=== PATIENT | male | born 2000 | race Caucasian/White ===

== ENCOUNTER 2022-12-22 04:46 | Emergency (ER) | payer SELFPAY ==
[~2022-12-22] VITALS: Ht 177.8 cm; Wt 68.0 kg
[2022-12-22] MEDS ORDERED: AMOXICILLIN 500 MG (POLYMOX) CAP PO STA (05:08)
[2022-12-22] MEDS ORDERED: KETOROLAC 30 MG/ML VIAL IM ONE (05:15)
[2022-12-22] MEDS ORDERED: LIDOCAINE 2% VISCOUS 15 ML UDC PO ONE (05:15)
--- NOTE | 2022-12-22 05:23 | ED General ---
General Chief Complaint: Dental Problems/Pain Stated Complaint: LEFT SIDE OF FACE PAIN,DENTAL PAIN Nursing Triage Note: PT AMB TO RM 6 W C/O LEFT UPPER DENTAL PAIN X2 WKS, A&OX4. Source of Information: Patient Exam Limitations: No Limitations History of Present Illness Date Seen by Provider: Dec 22, 2022 Time Seen by Provider: 04:54 Initial Comments This 21-year-old young man presents to the emergency room with 2 weeks of left- sided facial and dental pain. He has had no fevers. He has not been to a dentist. He has been taking Tylenol only because he is under the impression that he cannot take ibuprofen. Apparently he was told that he became disoriented with ibuprofen when he was a child. He has a large deep dental carry and a left upper molar. Incidentally he has hypertension noted as well. Allergies and Home Medications Allergies Coded Allergies: ibuprofen (Verified Adverse Reaction, Unknown, confusion, 12/22/22) Patient Home Medication List Home Medication List Reviewed: Yes Amoxicillin (Amoxicillin) 500 Mg Capsule, 1,000 MG PO BID Prescribed by: VANITA LANDA on 12/22/22 0530 Review of Systems Review of Systems Constitutional: no symptoms reported EENTM: see HPI Respiratory: no symptoms reported Cardiovascular: see HPI Gastrointestinal: no symptoms reported Genitourinary: no symptoms reported Musculoskeletal: no symptoms reported Skin: no symptoms reported Psychiatric/Neurological: No Symptoms Reported Hematologic/Lymphatic: No Symptoms Reported Immunological/Allergic: no symptoms reported Past Qpnjapm-Zudrzk-Usgyvi Hx Patient Social History Tobacco Use?: Yes Tobacco type used: Cigarettes Smoking Status: Current Everyday Smoker Use of E-Cig and/or Vaping dev: No Substance use?: No Alcohol Use?: No Immunizations Up To Date Influenza Vaccine Up-to-Date: No; Not Current Past Medical History Surgeries: No Respiratory: No Currently Using CPAP: No Cardiac: No Neurological: No Reproductive Disorders: No Gastrointestinal: No Musculoskeletal: No Endocrine: No HEENT: No Cancer: No Psychosocial: No Integumentary: No Physical Exam Vital Signs Vital Signs - First Documented 12/22/22 04:52 Temp 36.9 Pulse 77 Resp 18 B/P (MAP) 161/114 (130) Pulse Ox 98 O2 Delivery Room Air Capillary Refill : Less Than 3 Seconds Height, Weight, BMI Height: '" Weight: lbs. oz. kg; 21.00 BMI Method: General Appearance: No Apparent Distress, WD/WN, Thin HEENT: PERRL/EOMI, Pharynx Normal, Other (Large deep dental carry and a left upper molar with minimal gingival inflammation and no overt abscess. 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 Skin: Normal Color, Warm/Dry Progress/Results/Core Measures Suspected Sepsis SIRS Temperature: Pulse: 77 Respiratory Rate: 18 Blood Pressure 161 /114 Mean: 130 Results/Orders My Orders Orders - VANITA ROLLINS MD Lidocaine 2% Viscous 15 Ml (Xylocaine Vi (12/22/22 05:15) Ketorolac Injection (Toradol Injection) (12/22/22 05:15) Amoxicillin Capsule (Polymox Capsule) (12/22/22 05:08) Medications Given in ED Current Medications Medications Dose Ordered Sig/Lloyd Route Start Time Stop Time Status Last Admin Dose Admin Ketorolac Tromethamine 30 mg ONCE ONCE IM 12/22/22 05:15 12/22/22 05:16 DC 12/22/22 05:14 30 MG Lidocaine HCl 5 ml ONCE ONCE PO 12/22/22 05:15 12/22/22 05:16 DC 12/22/22 05:14 5 ML Vital Signs/I&O 12/22/22 04:52 Temp 36.9 Pulse 77 Resp 18 B/P (MAP) 161/114 (130) Pulse Ox 98 O2 Delivery Room Air Capillary Refill : Less Than 3 Seconds Blood Pressure Mean: 130 Progress Note : Progress Note Patient was treated with a Toradol injection. First dose of amoxicillin was administered. Anesthetic gauze pads were prepared and dispensed. Discharge instructions were reviewed with him. See discharge instructions for further discussion. Departure Impression Primary Impression: Pain, dental Additional Impressions: Dental decay Cerumen impaction Qualified Codes: H61.23 - Impacted cerumen, bilateral High blood pressure Qualified Codes: I10 - Essential (primary) hypertension Disposition: 01 HOME, SELF-CARE Condition: Improved Departure-Patient Inst. Decision time for Depature: 05:24 Referrals: NO,LOCAL PHYSICIAN (PCP/Family) Primary Care Physician Patient Instructions: Ear Wax Impaction ED, Tooth Decay ED Add. Discharge Instructions: Follow-up with a dentist as soon as possible. You will likely need an extraction or significant dental work performed to alleviate your symptoms. These procedures cannot be done in the emergency room or any doctors office. They must be arranged with a dentist. Complete antibiotics as prescribed because your pain may be due to deeper abscess where you have tooth decay. [place] your teeth gently twice daily with a soft bristle toothbrush. For your pain you should take Tylenol (acetaminophen) up to 1000 mg every 6 hours as needed. You may additionally take ibuprofen up to 600 mg every 6 hours as needed. You may use the anesthetic gauze pads tucked into the area of best e ffect. Please eat and drink very carefully after using these gauze pads as they will numb your mouth, tongue, and throat. Do not fall asleep with gauze pads in your mouth. You have earwax impaction in both ears which is obstructing your eardrums and is likely affecting your hearing. Do not use Q-tips in your ears as they tend to pack the wax deeper. Instead, use [id number] earwax removal drops. We will likely need to perform several treatments before the wax loosens and comes out. Your blood pressure is elevated today. You need to have your blood pressure checked again and preferably have an appointment soon at the clinic to evaluate your blood pressure. You should check your blood pressure when your pain is under better control. Work toward quitting smoking as fast as possible. Smoking affects your dental health, blood pressure, and overall health dramatically. Return to care if you have worsening symptoms despite following these instructions. All discharge instructions reviewed with patient and/or family. Voiced understanding. Scripts Amoxicillin (Amoxicillin) 500 Mg Capsule 1000 MG PO BID, #40 CAP 0 Refills Prov: VANITA ROLLINS MD 12/22/22 VANITA ROLLINS MD Dec 22, 2022 05:23
[2022-12-22] MEDS ORDERED: AMOX500C2 PO (05:30)
[2022-12-22 05:35] VITALS: BP 142/98
== END 2022-12-22 05:35 | disposition home or self-care (01) ==
LOC: ER 04:50
DX: K02.9 Dental caries, unspecified (principal); H61.23 Impacted cerumen, bilateral; R03.0 Elevated blood-pressure reading, without diagnosis of hypertension; F17.210 Nicotine dependence, cigarettes, uncomplicated; Z88.6 Allergy status to analgesic agent; Z28.310 Unvaccinated for COVID-19
CPT/HCPCS: 99284

== ENCOUNTER 2023-08-15 12:13 | Emergency (ER) | payer SELFPAY ==
[~2023-08-15 12:13] MED LIST: AMOX500C2 PO
[2023-08-15] MEDS ORDERED: NS IV 1000 ML 1,000 ML IV STA (12:37)
--- NOTE | 2023-08-15 12:45 | ED Chest Pain ---
General Chief Complaint: Cardiac/General Problems Stated Complaint: HEART RACING/ 980 MG CAFFEINE Nursing Triage Note: PT AMB TO RM 8 WITH C/O HEART RACING AFTER DRINKING 3 ENERGY DRINKS AND A CAFFIENE COOKIE AT WORK TODAY. PT ALSO STATES HE DID NOT SLEEP LAST NIGHT Source: patient Exam Limitations: no limitations History of Present Illness Date Seen by Provider: Aug 15, 2023 Time Seen by Provider: 12:42 Initial Comments Patient is a 22-year-old male who presents ED for high caffeine intake. Patient states 1 hour ago he drank a C4 energy drink. Around 9 AM he drank 2 black rifle coffees. Did also eat a caffeine cookie at that time. Patient was going to work at [employer]. Started having chest pressure shortness of breath and 'funny feeling" in his head over the past hour. States he does drink caffeine daily but not at that high of amount in a short period of time. Patient reports drinking just a little under 1000 mg of caffeine within a 3 to 4-hour period. Denies of any alcohol use or drug use. Patient denies of any history of heart disease. Denies visual changes, unilateral muscle weakness or sensory changes, vomit, diarrhea, abdominal pain. No known cardiac history Allergies and Home Medications Allergies Coded Allergies: ibuprofen (Verified Adverse Reaction, Unknown, confusion, 12/22/22) Patient Home Medication List Home Medication List Reviewed: Yes Amoxicillin (Amoxicillin) 500 Mg Capsule, 1,000 MG PO BID Prescribed by: VANITA LANDA on 12/22/22 0530 Review of Systems Review of Systems Constitutional: No chills, No diaphoresis EENTM: No Eye Pain Respiratory: Denies Cough, Denies Orthopnea Cardiovascular: Chest Pain Gastrointestinal: Denies Abdominal Pain, Denies Diarrhea, Denies Nausea, Denies Vomiting Genitourinary: Denies Burning, Denies Discharge, Denies Drainage, Denies Frequency Musculoskeletal: No back pain, No joint pain Skin: No change in color, No change in hair/nails Psychiatric/Neurological: Denies Anxiety, Denies Depressed All Other Systems Reviewed Negative Unless Noted: Yes Past Nxzkdtt-Ycsttt-Yvadlr Hx Patient Social History Tobacco Use?: Yes Tobacco type used: Cigarettes Substance use?: No Alcohol Use?: No Pt feels they are or have been: No Past Medical History Surgery/Hospitalization HX: DENIES Surgeries: No Respiratory: No Currently Using CPAP: No Cardiac: No Neurological: No Reproductive Disorders: No Gastrointestinal: No Musculoskeletal: No Endocrine: No HEENT: No Cancer: No Psychosocial: No Integumentary: No Physical Exam Vital Signs Vital Signs - First Documented 08/15/23 12:27 Pulse 92 Resp 20 B/P (MAP) 140/99 (113) Pulse Ox 99 O2 Delivery Room Air Capillary Refill : Height, Weight, BMI Height: '" Weight: lbs. oz. kg; 21.00 BMI Method: General Appearance: No Apparent Distress, WD/WN HEENT: PERRL/EOMI, TMs Normal, Normal ENT Inspection, Pharynx Normal Neck: Full Range of Motion, Normal Inspection, Non Tender, Supple Respiratory: Chest Non Tender, Lungs Clear, Normal Breath Sounds, No Accessory Muscle Use Cardiovascular: Regular Rate, Rhythm, No Edema, No Gallop, No JVD Gastrointestinal: Normal Bowel Sounds, No Organomegaly, No Pulsatile Mass, Non Tender Extremity: Normal Capillary Refill, Normal Inspection, Normal Range of Motion, Non Tender Neurologic/Psychiatric: Oriented x3, No Motor/Sensory Deficits, Normal Mood/Affect, 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 Skin: Normal Color, Warm/Dry Progress/Results/Core Measures Results/Orders Lab Results Laboratory Tests Test 08/15/23 12:50 08/15/23 12:53 Range/Units White Blood Count 5.8 4.3-11.0 10^3/uL Red Blood Count 5.29 4.30-5.52 10^6/uL Hemoglobin 15.8 13.3-17.7 g/dL Hematocrit 47 40-54 % Mean Corpuscular Volume 89 80-99 fL Mean Corpuscular Hemoglobin 30 25-34 pg Mean Corpuscular Hemoglobin Concent 34 32-36 g/dL Red Cell Distribution Width 12.6 10.0-14.5 % Platelet Count 222 130-400 10^3/uL Mean Platelet Volume 10.2 9.0-12.2 fL Immature Granulocyte % (Auto) 0 % Neutrophils (%) (Auto) 39 L 42-75 % Lymphocytes (%) (Auto) 50 H 12-44 % Monocytes (%) (Auto) 9 0-12 % Eosinophils (%) (Auto) 2 0-10 % Basophils (%) (Auto) 0 0-10 % Neutrophils # (Auto) 2.3 1.8-7.8 10^3/uL Lymphocytes # (Auto) 2.9 1.0-4.0 10^3/uL Monocytes # (Auto) 0.5 0.0-1.0 10^3/uL Eosinophils # (Auto) 0.1 0.0-0.3 10^3/uL Basophils # (Auto) 0.0 0.0-0.1 10^3/uL Immature Granulocyte # (Auto) 0.0 0.0-0.1 10^3/uL Prothrombin Time 11.7 L 12.2-14.7 SEC INR Comment 0.8 0.8-1.4 Activated Partial Thromboplast Time 29 24-35 SEC Sodium Level 141 135-145 MMOL/L Potassium Level 4.3 3.6-5.0 MMOL/L Chloride Level 105 98-107 MMOL/L Carbon Dioxide Level 25 21-32 MMOL/L Anion Gap 11 5-14 MMOL/L Blood Urea Nitrogen 13 7-18 MG/DL Creatinine 1.11 0.60-1.30 MG/DL Estimat Glomerular Filtration Rate 95 BUN/Creatinine Ratio 12 Glucose Level 100 70-105 MG/DL Calcium Level 9.6 8.5-10.1 MG/DL Corrected Calcium 8.5-10.1 MG/DL Magnesium Level 2.3 1.6-2.4 MG/DL Total Bilirubin 0.2 0.1-1.0 MG/DL Aspartate Amino Transf (AST/SGOT) 16 5-34 U/L Alanine Aminotransferase (ALT/SGPT) 12 0-55 U/L Alkaline Phosphatase 54 40-136 U/L Myoglobin 18.9 10.0-92.0 NG/ML Troponin I < 0.028 <0.028 NG/ML Total Protein 7.9 6.4-8.2 GM/DL Albumin 4.8 H 3.2-4.5 GM/DL Lipase 38 8-78 U/L Urine Opiates Screen NEGATIVE NEGATIVE Urine Oxycodone Screen NEGATIVE NEGATIVE Urine Methadone Screen NEGATIVE NEGATIVE Urine Propoxyphene Screen NEGATIVE NEGATIVE Urine Barbiturates Screen NEGATIVE NEGATIVE Ur Tricyclic Antidepressants Screen NEGATIVE NEGATIVE Urine Phencyclidine Screen NEGATIVE NEGATIVE Urine Amphetamines Screen NEGATIVE NEGATIVE Urine Methamphetamines Screen NEGATIVE NEGATIVE Urine Benzodiazepines Screen NEGATIVE NEGATIVE Urine Cocaine Screen NEGATIVE NEGATIVE Urine Cannabinoids Screen NEGATIVE NEGATIVE My Orders Orders - SCHULTZ,MP A PA Ns Iv 1000 Ml (Ns Iv 1000 Ml) (08/15/23 12:37) Cbc With Automated Diff (08/15/23 12:37) Magnesium (08/15/23 12:37) Chest 1 View, Ap/Pa Only (08/15/23 12:37) Comprehensive Metabolic Panel (08/15/23 12:37) Myoglobin Serum (08/15/23 12:37) Protime With Inr (08/15/23 12:37) Partial Thromboplastin Time (08/15/23 12:37) O2 (08/15/23 12:37) Monitor-Rhythm Ecg Trace Only (08/15/23 12:37) Ed Iv/Invasive Line Start (08/15/23 12:37) Lipase (08/15/23 12:37) Troponin I Rae (08/15/23 12:37) Drug Screen Stat (Urine) (08/15/23 12:37) Vital Signs/I&O 08/15/23 08/15/23 12:27 14:25 Pulse 92 88 Resp 20 20 B/P (MAP) 140/99 (113) 150/91 Pulse Ox 99 99 O2 Delivery Room Air Room Air Blood Pressure Mean: 113 Departure Communication (PCP) Patient presents the ED for caffeine abuse. Patient drink a C4 energy drink, two black rifle coffee cups, and a caffeine cookie within a 3-hour period. Start around 9 AM. Consume near 1000 mg of caffeine. Started having chest tightness short of breath, lightheadedness, funny sensation in his head. Patient reports heart palpitations. Denies of any drug use or alcohol use. No known cardiac history. Vital signs were stable on arrival. Cardiac work-up was initiated. He was not tachycardic or hypoxic. Stable blood pressure. Reports feeling slightly anxious. There is no evidence of tremoring. He was not diaphoretic. Contacted poison control. Patient caffeine level is low and is not considered toxic. Toxic level would be 50 mg per kg. At this time recommended IV hydration. May take 4 to 6 hours for symptoms to completely resolve. Patient was started on liter of fluid. CBC, CMP troponin, EKG and chest x-ray was ordered. Cardiac work-up unremarkable. EKG normal sinus rhythm without evidence of arrhythmia. Drug screen unremarkable. CBC, CMP grossly unremarkable. Patient was observed for 2 hours during his stay. Symptoms continued to improve. Patient states he is feeling much better. Symptoms have resolved. He is requesting be discharged. Continue monitoring symptoms at home. Continue with hydration. No caffeine for the next 24 hours. Recommend decreasing caffeine no more than 400 mg/day. Return precaution were discussed with patient. Return precaution were discussed. Stable vital signs. Impression Primary Impression: Caffeine abuse Disposition: 01 HOME, SELF-CARE Condition: Stable Departure-Patient Inst. Decision time for Depature: 14:19 Referrals: [facility] [place] BRISEIDA,LOCAL PHYSICIAN (PCP) Primary Care Physician Patient Instructions: Caffeine Add. Discharge Instructions: Recommend staying hydrated. Do not drink any more caffeine today. Limit under 400 mg daily. Any change in symptoms such as chest pain or shortness of breath return back to ED. All discharge instructions reviewed with patient and/or family. Voiced understanding. MP SCHULTZ Aug 15, 2023 12:45
[2023-08-15 13:02] LABS: BASOPHILS % (AUTO) 0 % (0-10); EOSINOPHILS # (AUTO) 0.1 10^3/uL (0.0-0.3); EOSINOPHILS % (AUTO) 2 % (0-10); HEMATOCRIT 47 % (40-54); HEMOGLOBIN 15.8 g/dL (13.3-17.7); LYMPHOCYTES # (AUTO) 2.9 10^3/uL (1.0-4.0); LYMPHOCYTES % (AUTO) 50 % (12-44); MEAN CORPUSCULAR HEMOGLOBIN 30 pg (25-34); MEAN CORPUSCULAR HGB CONC 34 g/dL (32-36); MEAN CORPUSCULAR VOLUME 89 fL (80-99); MEAN PLATELET VOLUME 10.2 fL (9.0-12.2); MONOCYTES # (AUTO) 0.5 10^3/uL (0.0-1.0); MONOCYTES % (AUTO) 9 % (0-12); NEUTROPHILS # (AUTO) 2.3 10^3/uL (1.8-7.8); NEUTROPHILS % (AUTO) 39 % (42-75); PLATELET COUNT 222 10^3/uL (130-400); WHITE BLOOD COUNT 5.8 10^3/uL (4.3-11.0)
--- NOTE | 2023-08-15 13:05 | Diagnostic Imaging Report ---
HISTORY: Chest pain. TECHNIQUE: Frontal view of the chest. COMPARISON: None. FINDINGS: Lung volumes are large. No consolidation is seen. There is no pleural effusion or pneumothorax. The cardiac silhouette is normal in size. IMPRESSION: No acute pulmonary abnormality. Dictated by: Dictated on workstation # [id number]
[2023-08-15 13:14] LABS: ALBUMIN 4.8 GM/DL (3.2-4.5); CHLORIDE 105 MMOL/L (98-107); POTASSIUM 4.3 MMOL/L (3.6-5.0); SODIUM 141 MMOL/L (135-145)
[2023-08-15 13:16] LABS: CALCIUM 9.6 MG/DL (8.5-10.1)
[2023-08-15 13:17] LABS: AMPHETAMINE SCREEN, URINE NEGATIVE (NEGATIVE); BARBITURATE SCREEN URINE NEGATIVE (NEGATIVE); BENZODIAZEPINES SCREEN URINE NEGATIVE (NEGATIVE); CANNABINOID SCREEN, URINE NEGATIVE (NEGATIVE); COCAINE SCREEN URINE NEGATIVE (NEGATIVE); METHADONE STAT NEGATIVE (NEGATIVE); OPIATE SCREEN URINE NEGATIVE (NEGATIVE); OXYCODONE STAT NEGATIVE (NEGATIVE); PROPOXYPHENE STAT NEGATIVE (NEGATIVE); TRICYCLIC ANTIDEPRESSANTS SCRE NEGATIVE (NEGATIVE)
[2023-08-15 13:17] LABS: GLUCOSE 100 MG/DL (70-105); TOTAL PROTEIN 7.9 GM/DL (6.4-8.2)
[2023-08-15 13:18] LABS: CARBON DIOXIDE 25 MMOL/L (21-32)
[2023-08-15 13:19] LABS: BILIRUBIN,TOTAL 0.2 MG/DL (0.1-1.0)
[2023-08-15 13:20] LABS: ALKALINE PHOSPHATASE 54 U/L (40-136); CREATININE SERUM 1.11 MG/DL (0.60-1.30); GFR ESTIMATED 95
[2023-08-15 13:21] LABS: BUN/CREATININE RATIO 12
[2023-08-15 13:23] LABS: ALANINE AMINOTRANSFERASE 12 U/L (0-55); MAGNESIUM 2.3 MG/DL (1.6-2.4)
[2023-08-15 13:24] LABS: LIPASE 38 U/L (8-78)
[2023-08-15 13:51] LABS: INR 0.8 (0.8-1.4); PROTHROMBIN TIME PATIENT 11.7 SEC (12.2-14.7)
[2023-08-15 14:25] VITALS: BP 150/91
== END 2023-08-15 14:25 | disposition home or self-care (01) ==
LOC: EDUNIT# 12:13 → ER 12:16
DX: F15.10 Other stimulant abuse, uncomplicated (principal); F17.210 Nicotine dependence, cigarettes, uncomplicated
CPT/HCPCS: 36415; 71045; 80053; 80306; 83690; 83735; 83874; 84484; 85025; 85610; 85730; 93005

== ENCOUNTER 2023-08-27 07:57 | Observation (INO) | payer SELFPAY ==
[~2023-08-27] VITALS: Ht 180.3 cm; Wt 65.9 kg
[2023-08-27] MEDS ORDERED: fentaNYL INJECTION 100 MCG/2 ML VIAL IVP STA (08:19)
[2023-08-27] MEDS ORDERED: NS IV 1000 ML 1,000 ML IV STA (08:19)
[2023-08-27] MEDS ORDERED: KETOROLAC INJ 30 MG/ML VIAL IVP STA (08:19)
--- NOTE | 2023-08-27 08:27 | ED General ---
General Chief Complaint: Skin/Wound Problems Stated Complaint: BILAT HAND PAIN Nursing Triage Note: PT AMB TO RM 3 PT CO OF REDDEND AND PAINFUL RASH, AREA ON TOP OF HANDS CRACKED AND OOZING. RASH TO TORSO, NECK AND FEET. DENIES RASH ON GENTIAL AREA. STARTED 3-4 DAYS AGO. Source of Information: Patient Exam Limitations: No Limitations History of Present Illness Date Seen by Provider: Aug 27, 2023 Time Seen by Provider: 08:05 Initial Comments Here with report of painful inflammation to the back of his hands both hands and forearms that he thought may be related to an oil burn. Also has rash to his hands, axilla, arms, chest and lower legs and feet. He is not sure what that is related to. He was using lotions on his hands. 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 States the area on the hands and arms is worsening and quite painful. Denies nausea, vomiting, upper respiratory symptoms, cough or breathing problems. Timing/Duration: 3-4 Days Severity: Moderate Associated Systoms: No Fever/Chills, No Nausea/Vomiting; Rash; No Shortness of Air, No Weakness Allergies and Home Medications Allergies Coded Allergies: No Known Drug Allergies (Unverified , 08/27/23) Patient Home Medication List Home Medication List Reviewed: Yes No Active Prescriptions or Reported Meds Review of Systems Review of Systems Constitutional: see HPI; No chills, No fever EENTM: No nose congestion, No throat pain Respiratory: No cough, No short of breath Cardiovascular: no symptoms reported Gastrointestinal: No nausea, No vomiting Genitourinary: no symptoms reported Skin: change in color, lesions, rash, other (Swelling, redness and drainage to the back of both hands) Psychiatric/Neurological: No Symptoms Reported Past Aewjkrf-Kjtzxc-Zozrww Hx Patient Social History Tobacco Use?: Yes Tobacco type used: Cigarettes Substance use?: No Additional substance use comme: PT STATES HAS BEEN CLEAN FOR 14 MONTHS Alcohol Use?: No Pt feels they are or have been: No Past Medical History Surgery/Hospitalization HX: SEIZURES Surgeries: No Respiratory: No Currently Using CPAP: No Cardiac: No Neurological: No Reproductive Disorders: No Gastrointestinal: No Musculoskeletal: No Endocrine: No HEENT: No Cancer: No Psychosocial: No Integumentary: No Family Medical History Reviewed Nursing Family Hx Physical Exam-Suspected Sepsis Physical Exam Vital Signs Vital Signs - First Documented 08/27/23 08/27/23 08:11 10:45 Temp 36.5 Pulse 62 Resp 18 B/P (MAP) 119/91 (100) Pulse Ox 99 O2 Delivery Room Air Capillary Refill : Blood Pressure Mean: 100 Height, Weight, BMI Height: '" Weight: lbs. oz. kg; 20.00 BMI Method: General Appearance: WD/WN, Mild Distress (Pain to both hands) HEENT: PERRL/EOMI, Pharynx Normal Neck: Non Tender, Supple Respiratory: Lungs Clear, Normal Breath Sounds Cardiovascular: Regular Rate, Rhythm, No Murmur Gastrointestinal: Non Tender, Soft Back: Normal Inspection, No CVA Tenderness, No Vertebral Tenderness Extremity: Swelling (Bilateral hands and distal arms), Other (Skin findings as below) Neurologic/Psychiatric: Alert Skin: warm/dry, rash, other (Disseminated rash noted to the webspaces of the hands and feet bilateral that extend to antecubital spaces, torso and neck. Has swelling and very tender area of skin that has some purulence and drainage with redness and swelling to the back of both hands concerning for cellulitis) Focused Exam Lactate Level 08/27/23 08:21: Lactic Acid Level 0.88 Lactic Acid Level Progress/Results/Core Measures Suspected Sepsis SIRS Temperature: Pulse: 62 Respiratory Rate: 18 Laboratory Tests 08/27/23 08:21: White Blood Count 9.5 Blood Pressure 119 /91 Mean: 100 08/27/23 08:21: Lactic Acid Level 0.88 Laboratory Tests 08/27/23 08:21: Creatinine 0.88, Platelet Count 274, Total Bilirubin 0.5 Results/Orders Lab Results Laboratory Tests Test 08/27/23 08:21 Range/Units White Blood Count 9.5 4.3-11.0 10^3/uL Red Blood Count 5.21 4.30-5.52 10^6/uL Hemoglobin 15.5 13.3-17.7 g/dL Hematocrit 45 40-54 % Mean Corpuscular Volume 87 80-99 fL Mean Corpuscular Hemoglobin 30 25-34 pg Mean Corpuscular Hemoglobin Concent 34 32-36 g/dL Red Cell Distribution Width 12.6 10.0-14.5 % Platelet Count 274 130-400 10^3/uL Mean Platelet Volume 10.3 9.0-12.2 fL Immature Granulocyte % (Auto) 0 % Neutrophils (%) (Auto) 57 42-75 % Lymphocytes (%) (Auto) 31 12-44 % Monocytes (%) (Auto) 9 0-12 % Eosinophils (%) (Auto) 2 0-10 % Basophils (%) (Auto) 1 0-10 % Neutrophils # (Auto) 5.4 1.8-7.8 10^3/uL Lymphocytes # (Auto) 3.0 1.0-4.0 10^3/uL Monocytes # (Auto) 0.8 0.0-1.0 10^3/uL Eosinophils # (Auto) 0.2 0.0-0.3 10^3/uL Basophils # (Auto) 0.1 0.0-0.1 10^3/uL Immature Granulocyte # (Auto) 0.0 0.0-0.1 10^3/uL Sodium Level 140 135-145 MMOL/L Potassium Level 3.8 3.6-5.0 MMOL/L Chloride Level 109 H 98-107 MMOL/L Carbon Dioxide Level 22 21-32 MMOL/L Anion Gap 9 5-14 MMOL/L Blood Urea Nitrogen 13 7-18 MG/DL Creatinine 0.88 0.60-1.30 MG/DL Estimat Glomerular Filtration Rate 123 BUN/Creatinine Ratio 15 Glucose Level 89 70-105 MG/DL Lactic Acid Level 0.88 0.50-2.00 MMOL/L Calcium Level 8.5 8.5-10.1 MG/DL Corrected Calcium 8.3 L 8.5-10.1 MG/DL Total Bilirubin 0.5 0.1-1.0 MG/DL Aspartate Amino Transf (AST/SGOT) 14 5-34 U/L Alanine Aminotransferase (ALT/SGPT) 11 0-55 U/L Alkaline Phosphatase 55 40-136 U/L C-Reactive Protein High Sensitivity 0.10 0.00-0.50 MG/DL Total Protein 6.8 6.4-8.2 GM/DL Albumin 4.3 3.2-4.5 GM/DL My Orders Orders - LENA CARRILLO MD Cbc And Automated Diff (08/27/23 08:19) Comprehensive Metabolic Panel (08/27/23 08:19) Blood Culture (08/27/23 08:19) Ed Iv/Invasive Line Start (08/27/23 08:19) Vital Signs Adult Sepsis Patie Q15M (08/27/23 08:19) O2 (08/27/23 08:19) Remove Rings In Anticipation O (08/27/23 08:19) Lactic Acid Analyzer (08/27/23 08:19) Hs C Reactive Protein (08/27/23 08:19) Ns Iv 1000 Ml (Ns Iv 1000 Ml) (08/27/23 08:19) Fentanyl Injection (Fentanyl Injection (08/27/23 08:19) Ketorolac Injection (Ketorolac Injection (08/27/23 08:19) Dipht/Pertuss(Acell)/Tet Adult (Dipht/Pe (08/27/23 08:30) Doxycycline Injection (Doxycycline Injec (08/27/23 09:30) Medications Given in ED Current Medications Medications Dose Ordered Sig/Lloyd Route Start Time Stop Time Status Last Admin Dose Admin Doxycycline Hyclate 100 mg/ Sodium Chloride 100 ml @ 100 mls/hr ONCE ONCE IV 08/27/23 09:30 08/27/23 10:29 DC 08/27/23 09:37 100 MLS/HR Vital Signs/I&O 08/27/23 08/27/23 08/27/23 08/27/23 09:46 10:45 12:45 15:13 Temp 36.6 37.0 Pulse 62 71 63 Resp 18 16 16 B/P (MAP) 119/91 112/74 (87) 112/69 (83) Pulse Ox 99 99 99 O2 Delivery Room Air Room Air Room Air 08/27/23 08/27/23 19:48 20:10 Temp 36.9 Pulse 52 Resp 16 B/P (MAP) 110/61 (77) Pulse Ox 98 O2 Delivery Room Air Room Air Capillary Refill : Blood Pressure Mean: 100 Progress Note : Progress Note Seen and evaluated. IV, labs including CBC, CMP, CRP, blood cultures and lactic acid ordered. We will update tetanus. Normal saline 1 L bolus, Toradol 30 mg IV and fentanyl 50 mcg IV for pain. Monitor patient. Differential diagnosis includes disseminated scabies, cellulitis, sepsis 0910: CBC is grossly normal and CMP overall is grossly normal with normal CRP and negative lactic acid. Patient does have significant findings on his skin that is concerning for cellulitis and I do believe that he would benefit from hospitalization for IV antibiotics to ensure that this is improving. We can also initiate treatment for disseminated scabies. I did discuss the case with Dr. Gasca, hospitalist on-call. He agrees to admission, observation status and we will initiate doxycycline 100 mg IV and continue that twice daily. They we will initiate permethrin 5% per package direction for scabies. This was discussed with the pharmacist on-call who agrees and will ensure that this gets started. Findings and concerns discussed with patient who agrees with plan. Departure Communication (Admissions) Time/Spoke to Admitting Phy: 09:10 Impression Primary Impression: Cellulitis Qualified Codes: L03.119 - Cellulitis of unspecified part of limb Additional Impression: Scabies infestation Disposition: ADMITTED INPATIENT Condition: Stable Admissions Decision to Admit Reason: Admit from ER (Trauma) Decision to Admit/Date: Aug 27, 2023 Time/Decision to Admit Time: 09:10 Departure-Patient Inst. Referrals: NO,LOCAL PHYSICIAN (PCP/Family) Primary Care Physician Scripts No Active Prescriptions or Reported Meds LENA CARRILLO MD Aug 27, 2023 08:27
[2023-08-27] MEDS ORDERED: Tetanus/Diphtheria/Pertussis (Acell) ADULT Vaccine 0.5 ML IM ONE (08:30)
[2023-08-27 08:32] LABS: BASOPHILS # (AUTO) 0.1 10^3/uL (0.0-0.1); BASOPHILS % (AUTO) 1 % (0-10); EOSINOPHILS # (AUTO) 0.2 10^3/uL (0.0-0.3); EOSINOPHILS % (AUTO) 2 % (0-10); HEMATOCRIT 45 % (40-54); HEMOGLOBIN 15.5 g/dL (13.3-17.7); LYMPHOCYTES % (AUTO) 31 % (12-44); MEAN CORPUSCULAR HEMOGLOBIN 30 pg (25-34); MEAN CORPUSCULAR HGB CONC 34 g/dL (32-36); MEAN CORPUSCULAR VOLUME 87 fL (80-99); MEAN PLATELET VOLUME 10.3 fL (9.0-12.2); MONOCYTES # (AUTO) 0.8 10^3/uL (0.0-1.0); MONOCYTES % (AUTO) 9 % (0-12); NEUTROPHILS # (AUTO) 5.4 10^3/uL (1.8-7.8); NEUTROPHILS % (AUTO) 57 % (42-75); PLATELET COUNT 274 10^3/uL (130-400); WHITE BLOOD COUNT 9.5 10^3/uL (4.3-11.0)
[2023-08-27 08:44] LABS: ALBUMIN 4.3 GM/DL (3.2-4.5); POTASSIUM 3.8 MMOL/L (3.6-5.0)
[2023-08-27 08:45] LABS: CALCIUM 8.5 MG/DL (8.5-10.1)
[2023-08-27 08:46] LABS: TOTAL PROTEIN 6.8 GM/DL (6.4-8.2)
[2023-08-27 08:48] LABS: BILIRUBIN,TOTAL 0.5 MG/DL (0.1-1.0)
[2023-08-27 08:50] LABS: CREATININE SERUM 0.88 MG/DL (0.60-1.30)
[2023-08-27] MEDS ORDERED: DOXYCYCLINE INJECTION 100 MG in NS (IVPB) 100 ML 100 ML IV ONE (09:30)
[2023-08-27] MEDS ORDERED: KETOROLAC INJ 30 MG/ML VIAL IV PRN (11:00)
[2023-08-27] MEDS ORDERED: PERMETHRIN 5% TOP ONE (11:00)
[2023-08-27] MEDS ORDERED: NICOTINE 2 MG LOZENGE MM PRN (12:30)
[2023-08-27 12:45] VITALS: BP 112/74
[2023-08-27] MEDS: NICOTINE 21 MG PATCH TD SCH (12:47)
[2023-08-27] MEDS ORDERED: IVERMECTIN 3 MG TABLET PO SCH (13:00)
[2023-08-27] MEDS ORDERED: FLU QUADRIvalent (6 months+) 60 mcg/0.5 ml 2023-2024 (FLUARIX) IM ONE (14:30)
[2023-08-27 15:13] VITALS: BP 112/69
--- NOTE | 2023-08-27 15:51 | History & Physical-Hospitalist ---
ALBERTO SANCHEZ 08/27/23 1551: History of Present Illness HPI/Chief Complaint Patient is 22 yo man that presents with painful hands that are red, cracked, and oozing along with redness and bumps/rash on arms, chest, ankles and feet. He reports it first started with pain in his wrist about 2 days ago and then the rash, inflammation, and bumps came the next day. He is not sure what caused it and denies using any new lotions/creams/soap and denies any sick contacts that have similar symptoms. 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 The pain is about 8/10 and worsens with movement and touch and has been getting more severe since he noticed it. He denies any itching, just says its extremely painful. He denies drinking alcohol and smokes cigarettes daily. He denies fever, chills, n/v/d, chest pain, shortness of breath. Date Seen 08/27/23 Attending Physician No,Local Physician PCP Admitting Physician: Marlene Painting MD Attending Physician: Marlene Painting MD Referring Physician Date of Admission Aug 27, 2023 at 10:35 Home Medications & Allergies Home Medications Reviewed patient Home Medication Reconciliation performed by pharmacy medication reconciliations tool repair technician and/or nursing. Patients Allergies have been reviewed. Allergies Allergies Coded Allergies No Known Drug Allergies (Unverified08/27/23) Past Xpugjtn-Dxtocz-Lvbiro Hx Patient Social History Tobacco Use?: Yes Tobacco type used: Cigarettes Smoking Status: Current Everyday Smoker Use of E-Cig and/or Vaping dev: No Substance use?: No Additional substance use comme: PT STATES HAS BEEN CLEAN FOR 14 MONTHS Alcohol Use?: No Pt feels they are or have been: No Immunizations Up To Date Tetanus Booster (TDap): More Than 5 Years Current Status Advance Directives: No Communicates: Verbally Primary Language: Thai Preferred Spoken Language: Thai Is interpretation needed?: No Implanted or Applied Medical D: None Past Medical History Currently Using CPAP: No Family Medical History Reviewed Nursing Family Hx Review of Systems Constitutional: No chills, No fever EENTM: No blurred vision, No vision loss Respiratory: No cough, No short of breath Cardiovascular: No chest pain, No palpitations Gastrointestinal: No abdominal pain, No diarrhea, No nausea, No vomiting Skin: change in color (redness on both hands and red bumps on arm, chest, ankle, feet, hands), lesions; No pruritus; rash, other (drainage on back of both hands) Psychiatric/Neurological: Denies Headache, Denies Weakness Physical Exam Physical Exam Vital Signs Vital Signs - First Documented 08/27/23 08/27/23 08:11 10:45 Temp 36.5 Pulse 62 Resp 18 B/P (MAP) 119/91 (100) Pulse Ox 99 O2 Delivery Room Air Capillary Refill : Height, Weight, BMI Height: '" Weight: lbs. oz. kg; 20.27 BMI Method: General Appearance: No Apparent Distress, WD/WN Neck: Non Tender, Supple Respiratory: Chest Non Tender, Normal Breath Sounds, No Accessory Muscle Use, No Respiratory Distress Cardiovascular: Regular Rate, Rhythm, No Edema, Normal Peripheral Pulses Gastrointestinal: Normal Bowel Sounds, Non Tender, Soft Extremity: No Pedal Edema, Inflammation (back of both hands), Other (Significant pain in b/l hands) Neurologic/Psychiatric: Alert, Oriented x3 Skin: Warm/Dry, Rash (redness on hands, arms, chest, ankles, feet (between toes)), Other (cracked skin with drainage on majority of back of both hands) Results Results/Procedures Labs Laboratory Tests 08/27/23 08:21 Patient resulted labs reviewed. Assessment/Plan Assessment and Plan Disseminated Scabies Cellulitis IV doxycycline Permethrin cream Ivermectin Keterolac for pain Nicotine addiction Nicotine lozenge MARLENE PAINTING MD 08/27/23 1641: History of Present Illness Source: patient Exam Limitations: no limitations Time Seen by a Provider: 11:30 Past Ckmfydj-Imqvxg-Ynnniv Hx Patient Social History Tobacco Use?: Yes Tobacco type used: Cigarettes Smokeless Tobacco Frequency: Current Everyday User Substance use?: No Alcohol Use?: No Family Medical History No Pertinent Family Hx Assessment/Plan Admission Diagnosis Cellulitis Admission Status: Observation Assessment and Plan Admitted with crusted scabies with concern for superimposed bacterial cellulitis. He was started on Permethrin. We are awaiting Ivermectin per pharmacy. He is also getting Doxycycline for cellulitis. Diagnosis/Problems Diagnosis/Problems (1) Scabies infestation Status: Acute (2) Crusted scabies Status: Acute (3) Superimposed infection Status: Acute (4) Cellulitis Status: Acute Qualifiers: Site of cellulitis: extremity Site of cellulitis of extremity: upper extremity Laterality: unspecified laterality Qualified Codes: L03.119 - Cellulitis of unspecified part of limb (5) Tobacco abuse Status: Chronic Supervisory-Addendum Brief Verification & Attestation Participated in pt care: history, MDM, physical Personally performed: exam, history, MDM, supervision of care Care discussed with: Medical Student Procedures: n/a A medical student performed and documented this service in my presence. I reviewed and verified all information documented by the medical student and made modifications to such information, when appropriate. I personally performed the physical exam and medical decision making. ALBERTO SANCHEZ Aug 27, 2023 15:51 MARLENE PAINTING MD Aug 27, 2023 16:41
[2023-08-27 19:48] VITALS: BP 110/61
[2023-08-27] MEDS ORDERED: DOXYCYCLINE INJECTION 100 MG in NS (IVPB) 100 ML 100 ML IV SCH (21:00)
[2023-08-27 23:57] VITALS: BP 120/70
[2023-08-28 04:19] VITALS: BP 121/61
[2023-08-28 05:55] LABS: BASOPHILS % (AUTO) 1 % (0-10); EOSINOPHILS # (AUTO) 0.2 10^3/uL (0.0-0.3); EOSINOPHILS % (AUTO) 3 % (0-10); HEMATOCRIT 43 % (40-54); HEMOGLOBIN 14.5 g/dL (13.3-17.7); LYMPHOCYTES # (AUTO) 2.5 10^3/uL (1.0-4.0); LYMPHOCYTES % (AUTO) 40 % (12-44); MEAN CORPUSCULAR HEMOGLOBIN 29 pg (25-34); MEAN CORPUSCULAR HGB CONC 34 g/dL (32-36); MEAN CORPUSCULAR VOLUME 87 fL (80-99); MEAN PLATELET VOLUME 10.7 fL (9.0-12.2); MONOCYTES # (AUTO) 0.5 10^3/uL (0.0-1.0); MONOCYTES % (AUTO) 8 % (0-12); NEUTROPHILS % (AUTO) 49 % (42-75); PLATELET COUNT 242 10^3/uL (130-400); WHITE BLOOD COUNT 6.2 10^3/uL (4.3-11.0)
[2023-08-28 06:24] LABS: CALCIUM 8.3 MG/DL (8.5-10.1); CREATININE SERUM 0.78 MG/DL (0.60-1.30); POTASSIUM 3.8 MMOL/L (3.6-5.0)
[2023-08-28] MEDS ORDERED: ACETAMINOPHEN 325 MG TABLET PO PRN (07:30)
[2023-08-28] MEDS ORDERED: IBUPROFEN 600 MG TABLET PO PRN (07:30)
[2023-08-28 08:07] VITALS: BP 104/61
[2023-08-28] MEDS: NICOTINE 21 MG PATCH TD SCH (08:36)
[2023-08-28] MEDS ORDERED: NICOTINE PATCH REMOVAL TP SCH (08:59)
[2023-08-28] MEDS ORDERED: DOXY100T2 PO (10:43)
[2023-08-28] MEDS ORDERED: IVER3TAB PO (10:43)
[2023-08-28] MEDS ORDERED: PERM60CR4 TP (10:44)
[2023-08-28] MEDS ORDERED: IVERMECTIN 3 MG TABLET PO SCH (11:00)
[2023-08-28 11:46] VITALS: BP 101/62
--- NOTE | 2023-08-28 22:01 | Discharge Summary ---
Discharge Summary Hospital Course Problems/Dx: (1) Scabies infestation Status: Acute (2) Crusted scabies Status: Acute (3) Superimposed infection Status: Acute (4) Cellulitis Status: Acute Qualifiers: Qualified Codes: L03.119 - Cellulitis of unspecified part of limb (5) Tobacco abuse Status: Chronic Hospital Course Date of Admission: Aug 27, 2023 at 10:35 Admission Diagnosis : Crusted scabies, cellulitis Family Physician/Provider: NancyLocal Physician Date of Discharge: 08/28/23 Discharge Diagnosis: Crusted scabies, cellulitis Hospital Course: Uche Diehl is a 22 year old male who was admitted with crusted scabies. He was treated with permethrin cream and Ivermectin. He will complete a course of permethrin and Ivermectin as an outpatient. He was also treated for superimposed bacterial cellulitis with Doxycycline. He needs to establish with a primary care physician. He was set up with a follow up appointment at [facility]. He was discharged home in stable condition. Labs and Pending Lab Test: Laboratory Tests 08/28/23 05:25: White Blood Count 6.2, Red Blood Count 4.93, Hemoglobin 14.5, Hematocrit 43, Mean Corpuscular Volume 87, Mean Corpuscular Hemoglobin 29, Mean Corpuscular Hemoglobin Concent 34, Red Cell Distribution Width 12.7, Platelet Count 242, Mean Platelet Volume 10.7, Immature Granulocyte % (Auto) 0, Neutrophils (%) (Auto) 49, Lymphocytes (%) (Auto) 40, Monocytes (%) (Auto) 8, Eosinophils (%) (Auto) 3, Basophils (%) (Auto) 1, Neutrophils # (Auto) 3.0, Lymphocytes # (Auto) 2.5, Monocytes # (Auto) 0.5, Eosinophils # (Auto) 0.2, Basophils # (Auto) 0.0, Immature Granulocyte # (Auto) 0.0, Sodium Level 142, Potassium Level 3.8, Chloride Level 113H, Carbon Dioxide Level 21, Anion Gap 8, Blood Urea Nitrogen 9, Creatinine 0.78, Estimat Glomerular Filtration Rate 128, BUN/Creatinine Ratio 12, Glucose Level 89, Calcium Level 8.3L Microbiology 08/27/23 Blood Culture - Preliminary, Resulted Home Meds Active Permethrin 5 % Cream..g. 60 Gm TP WEEK 28 Days Doxycycline Hyclate 100 Mg Tablet 100 Mg PO BID@07,17 7 Days Stromectol (Ivermectin) 3 Mg Tablet 12 Mg PO DAILY@1100 15 Days TAKE 12 MG ON DAY 2, 12 MG ON DAY 8, 12 MG ON DAY 9, AND 12 MG ON DAY 15 Assessment/Pt Instructions Take medicatioins as prescribed. Establish with a primary care physician. Discharge Planning: >30 minutes discharge planning Discharge Instructions Discharge Diet: No Restrictions Activity as Tolerated: Yes Discharge Physical Examination Vital Signs Vital Signs Date Time Temp Pulse Resp B/P (MAP) Pulse Ox O2 Delivery O2 Flow Rate FiO2 08/28/23 11:46 36.4 98 18 101/62 (75) 99 Room Air Allergies: Coded Allergies: No Known Drug Allergies (Unverified , 08/27/23) Copy Copies To 1: [facility] [place] Discharge Summary Date of Admission Aug 27, 2023 at 10:35 Date of Discharge Aug 28, 2023 at 14:21 Discharge Date: Aug 28, 2023 Discharge Time: 14:21 Admission Diagnosis Cellulitis Discharge Diagnosis Scabies Cellulitis (1) Scabies infestation Status: Acute (2) Crusted scabies Status: Acute (3) Superimposed infection Status: Acute (4) Cellulitis Status: Acute Qualifiers: Qualified Codes: L03.119 - Cellulitis of unspecified part of limb (5) Tobacco abuse Status: Chronic PAUL PAINTING MD Aug 28, 2023 22:01
== END 2023-08-28 14:20 | disposition home or self-care (01) ==
LOC: EDUNIT# 07:57 → ER 07:58 → UNDOADMOB 10:35 → 4TH 10:35 → UNDODISOB 08-28 14:20
PROVIDERS: ADMIT Internal Medicine; ATTEND Internal Medicine
DX: B86 Scabies (principal); L03.90 Cellulitis, unspecified; F17.210 Nicotine dependence, cigarettes, uncomplicated
CPT/HCPCS: 80048; 80053; 83605; 85025 ×2; 86141; 87040; 90471; 96361; 96374; 96375; 96376; 99284; G0378; 36415; 90715